=== PATIENT | female | born 1950 | race Hispanic/Latino ===

== ENCOUNTER 2018-02-18 09:04 | Day surgery (SDC) | payer OTHER ==
[2018-02-18] MEDS ORDERED: EPINEPHRINE/PF 1 MG/ML AMP ONE (09:22)
[2018-02-18] MEDS ORDERED: NS 0.9% VIAL 10 ML ONE (09:22)
[2018-02-18] MEDS ORDERED: DUOVISC 1 KIT OPTH ONE (09:23)
[2018-02-18] MEDS ORDERED: BALANCED SALT IRRIG PLAIN 500 ML BTL IRR ONE (09:23)
[2018-02-18] MEDS ORDERED: MOXIFLOXACIN HCL 10 DROPS/ML **OR USE OPTH ONE (09:23)
[2018-02-18] MEDS ORDERED: CYCLOPENTOLATE 1% OPTH 2 ML ONE (09:28)
[2018-02-18] MEDS ORDERED: NA CHLORIDE 0.9% 500 ML ONE (09:28)
[2018-02-18] MEDS ORDERED: LIDOCAINE 2% MPF 5 ML VIAL ONE ×2 (09:28→10:34)
[2018-02-18] MEDS ORDERED: PHENYLEPHRINE 10% OPTH 5ML ONE (09:29)
[2018-02-18] MEDS ORDERED: BUPIVACAINE 0.25% PF 10 ML VIAL ONE (09:29)
[2018-02-18] MEDS ORDERED: TETRACAINE HCL 0.5% 2ML OPTH ONE (09:29)
[2018-02-18] MEDS ORDERED: CYCLOPENTOLATE 1% OPTH 2 ML OPTH ONE ×2 (09:47→09:56)
[2018-02-18] MEDS ORDERED: PHENYLEPHRINE 10% OPTH 5ML OPTH ONE ×2 (09:47→09:56)
[2018-02-18] MEDS ORDERED: PROPOFOL 200 MG/20 ML VIAL IV ONE (10:34)
--- NOTE | 2018-02-18 11:37 | P.BOP ---
Preoperative diagnosis: Nuclear sclerotic, cortical and posterior subcapsular cataract OS Postoperative diagnosis: Same Primary procedure: Phacoemulsification with IOL OS Estimated blood loss: None Anesthesia: Local (Subtenon's infusion with anesthesia for cataract surgery) Complications: None Implants: ZCB00 +23.0 Transferred to: Other (Day surgery) Condition: Good
--- NOTE | 2018-02-18 13:46 | OP ---
Date of Procedure: 02/18/2018 Surgeon: Anna Hawkins MD Anesthesiologist: 1. Deepali Funk CRNA. 2. Hardik Saenz CRNA. 3. Mikal Felix M.D. Preoperative Diagnoses: Nuclear sclerotic, cortical, and posterior subcapsular cataract, left eye. Operation Performed: Phacoemulsification with intraocular lens implant, left eye. Anesthesia: per cataract surgery. Complications: None. Description Of Procedure: In day surgery, the patient was prepped with Betadine and draped. A conju nctival incision was made in the inferior nasal quadrant with Tammy scissors. A sub-Tenon block c onsisting of a 1:1 mixture of 2% Xylocaine and 0.25% bupivacaine was placed through the conjunctival incision with a blunt cannula. A [place] balloon was placed over the eye and the patient was transferr ed to the operating room. In the operating room the patient was prepped and draped in the usual sterile fashion for ophthalmic surgery. A lid speculum was placed in the left eye. Two paracentesis sites were made superiorly and inferiorly in the limbal cornea. Viscoat was placed in the anterior chamber and a crescent blade wa s used to make a corneal groove and tunnel, and a keratome was used to enter the anterior chamber. P rovisc was placed in the anterior chamber and a 360 degree capsulotomy was performed with a cystitome . The lens was hydrodissected with BSS and rotated freely. The lens was removed with a stop and cho p technique. 10.29 phaco CDE was used to remove the lens. Residual cortex was removed with the irri gation and aspiration. Provisc was placed in the capsular bag. A ZCB00 +23.[address] d in the capsular bag without complications. Irrigation and aspiration was used to remove residual v iscoelastic. The paracentesis sites were hydrated with BSS. The wound and paracentesis sites were i nspected and found to be watertight. Vigamox 0.07 cc was placed intracamerally at the end of the pro cedure. The eye was irrigated with balanced salt solution. The eye was patched with a soft cotton p atch and Wood metal shield. The patient was returned to day surgery in good condition. Comments: Trace residual PSC remained inferiorly at the end of the procedure. Discharge Instructions: Ms. Osei is discharged to home in good condition and is to follow up with Dr Elvia Hawkins in the morning. [place]/TOPHER Voice ID: [id number] Report ID: [id number]
== END 2018-02-18 12:17 | disposition home or self-care (01) ==
LOC: OR 09:04
PROVIDERS: ATTEND Ophthalmology Retina Specialist
PROC: 08RK3JZ Replacement of Left Lens with Synthetic Substitute, Percutaneous Approach (ICD-10-PCS; principal; 2018-02-18 10:00)
DX: H25.12 Age-related nuclear cataract, left eye (principal); H25.012 Cortical age-related cataract, left eye; E78.00 Pure hypercholesterolemia, unspecified; I10 Essential (primary) hypertension
CPT/HCPCS: 66984; J0171